=== PATIENT | male | born 1985 | race African-American/Black ===

== ENCOUNTER 2019-07-03 14:37 | Emergency (ER) | payer OTHER, SELFPAY ==
[2019-07-03 15:18] VITALS: BP 140/90; PULSE 108; RESP 16; TEMP 37.7; O2SAT 100
[2019-07-03 15:29] LABS: Basophils Percent Auto 0.7 % (0.2-1.2); Eosinophils Absolute Auto 0.1 K/mm3 (0-0.3); Eosinophils Percent Auto 2.4 % (0-4.4); Hematocrit 49.9 % (42.0-52.0); Hemoglobin 15.8 g/dL (14.0-18.0); Immature Granulocyte Absolute 0.02 K/mm3 (0.00-0.031); Immature Granulocyte Percent A 0.3 % (0-0.5); Lymphocytes Absolute Auto 1.77 K/mm3 (0.9-3.2); Lymphocytes Percent Auto 30.9 % (18.3-44.2); Mean Corpuscular HGB Conc 31.7 g/dl (32-36); Mean Corpuscular Volume 85.3 fl (80-100); Mean Platelet Volume 9.3 fl (7.4-10.4); Monocytes Absolute Auto 0.8 K/mm3 (0.1-0.6); Monocytes Percent Auto 13.4 % (2.6-8.5); Neutrophils Percent Auto 52.3 % (45.5-73.1); Platelet Count Result 310 k/mm3 (150-375); Red Blood Count 5.85 M/mm3 (4.6-6.20); Red Cell Distribution Width 13.5 % (11.5-14.5); White Blood Count 5.7 K/mm3 (4.5-10.0)
[2019-07-03 15:44] LABS: Alanine Aminotransferase 30 U/L (4-50); Albumin Level 4.5 g/dL (3.5-5.1); Alkaline Phosphatase 70 U/L (38-126); Aspartate Amino Transferase 30 U/L (17-59); Bilirubin,Total 0.4 mg/dL (0.2-1.3); Blood Urea Nitrogen 8 mg/dL (9-20); Calcium 9.4 mg/dL (8.4-10.2); Carbon Dioxide 26 mmol/L (22-30); Chloride 103 mmol/L (98-107); Estimated CRCL calculation 108 ml/min; Estimated Glomerular Filt Rate > 60; Glucose 120 mg/dL (75-110); Lipase 306 U/L (23-300); Potassium 3.6 mmol/L (3.4-5.0); Sodium 139 mmol/L (137-145)
[2019-07-03 16:44] VITALS: BP 166/104; PULSE 100; RESP 19; O2SAT 100
--- NOTE | 2019-07-03 16:45 | ED.ABDPAIN ---
HPI - Abdominal Pain General Chief Complaint: Abdominal Pain Stated Complaint: Pain in pelvic area Time Seen by Provider: 07/03/19 16:34 Source: patient and RN notes reviewed Mode of arrival: other Limitations: no limitations History of Present Illness HPI narrative: Pt is a 34 y/o male who presents to the ED with c/o lower abdominal pain that began 3 days ago (06/30/19). Pt has been drinking cranberry juice because he might have a UTI. Pt denies being around any sick contacts. recent travel, and being on any antibiotics recently. Pt has been taking Pepto Bismol, with no relief of his sx. Pt last had BBQ with a side of potato salad. Pt notes that he has not been to work d/t his sx. Pt also reports diarrhea that began 3 days ago (06/30/19), but denies a fever and hematochezia. MD elicited complaint: abdominal pain Onset (ago): day(s) (3) Pain Consistency: constant Location: other (lower abdomen) Relieving factors: nothing Associated symptoms: diarrhea Related Data Allergies Allergy/AdvReac Type Severity Reaction Status Date / Time No Known Allergies Allergy Verified 07/03/19 16:39 Review of Systems Review of Systems: All systems reviewed & are unremarkable except as noted in HPI and below Constitutional: Constitutional: Denies fever(s) Gastrointestinal: Gastrointestinal: Reports abdominal pain (lower), Denies hematochezia and Reports diarrhea PMFSH Past Medical History Medical History (Updated 07/03/19 @ 17:59 by Raad Faria MD) Patient denies significant medical history Surgical History Surgical History (Updated 07/03/19 @ 16:53 by Afia Joshi) No history of previous surgery Social History Social History (Updated 07/03/19 @ 16:53 by Afia Joshi) Smoking status: Unknown if ever smoked Exam Const: General: healthy appearing, no acute distress and well developed Nutritional Appearance: well nourished Orientation/consciousness: patient oriented x3 (alert) and Other orientation findings (Alert) Limitations: no limitations HENMT: Head: normocephalic and atraumatic Ears: external ears normal General nose exam: No nasal discharge present and no epistaxis Face and sinus: face symmetric Mouth: Yes lip normal, Yes tongue normal and Yes moist mucous membranes Throat: other (No exudate, no erythema) Eyes: Conjunctivae: conjunctivae normal Sclera: sclerae normal EOM: EOMs intact bilaterally Neck: Neck: full ROM, no lymphadenopathy and supple Thyroid: thyroid normal Chest: Chest palpation & inspection: no tenderness Resp: Effort & Inspection: normal respiratory effort Auscultation: clear to auscultation bilaterally, no rales, no rhonchi, no wheezes and other (breath sounds equal) Cardio: Rate: regular rate Rhythm: regular rhythm Heart sounds: no gallops and no murmurs GI: Inspection: non-distended GI Palp: Yes abdominal tenderness (mild left side), No Guarding due to palpation present (GI) and No Rebound tenderness present Auscultation: other (bowel sounds present) : General: Yes no CVA tenderness Back/Spine/Pelvis: Back: no CVA tenderness Thoracic/Lumbar Spine: thoracic and lumbar spine normal to inspection Skin: General skin exam: normal color and no rashes or lesions noted Neuro: General: patient oriented x3 (alert), moves all extremities and no focal motor deficits Cranial nerves: Yes facial symmetry Speech: normal speech Motor exam (neuro): Motor abnormalities not present Extrem: General: normal to inspection, full ROM and no pedal edema Psych: Affect: normal affect Course Course Emergency Course: improved after fluids and bentyl Discussed with patient's that he does not have worrisome features such as bloody stools fever antibiotic exposure or troublesome travel history Vital Signs Vital signs: Vital Signs Temperature 37.7 C H 07/03/19 15:18 Pulse Rate 108 H 07/03/19 15:18 Respiratory Rate 16 07/03/19 15:18 Blood Pressure 140/90 07/03/19 15:18 Pulse Oximetr
[2019-07-03 16:57] LABS: Add Urine Microscopic? YES; Appearance Urine Clear (Clear); Bacteria Urine Trace /hpf; Bilirubin Urine Negative (Negative); Blood Urine 1+ (Negative); Color Urine Yellow (Yellow); Glucose Urine UA Negative (Negative); Ketones Urine Trace mg/dL (Negative); Leukocyte Esterase Ur Negative LEU/UL (Negative); Mucus Urine Rare /lpf; Nitrate Urine Negative (Negative); Protein Urine Negative (Negative); RBC Urine 0-2 /hpf (0-2); Squamous Epithelial Cell Urine Rare /hpf (Few); Urobilinogen Urine Negative mg/dL (<2.0); WBC Urine 0-3 /hpf
[2019-07-03] MEDS: DICYCLOMINE HCL INJ 20 MG/2 ML VIAL IM (17:23)
[2019-07-03] MEDS: LACTATED RINGERS 1,000 ML 999 ML IV CONT (17:23)
[2019-07-03 18:48] VITALS: BP 145/90; PULSE 90; RESP 19; O2SAT 100
== END 2019-07-03 18:49 | disposition home or self-care (01) ==
PROVIDERS: Emergency Medicine; Emergency Provider Emergency Medicine
DX: R19.7 Diarrhea, unspecified (principal)
CPT/HCPCS: 36415; 80053; 81001; 83690; 85025; 96360; 96372; 99283; J0500; J7120